=== PATIENT | male | born 1990 | race Caucasian/White ===

== ENCOUNTER 2021-11-24 09:49 | Emergency (ER) | payer OTHER, SELFPAY ==
--- NOTE | 2021-11-24 09:52 | ED.SKABFB ---
HPI - Skin/Abscess/Foreign Bdy General Chief complaint: Skin/Abscess/Foreign Body Stated complaint: Skin Sore/Right Leg Time Seen by Provider: 11/24/21 09:52 Source: patient Mode of arrival: ambulatory Limitations: no limitations History of Present Illness HPI narrative: Mr. Roland is a 31-year-old male patient presenting to the clinic today with complaints of a sore on his right leg x1 day He reports he thinks that this may be an insect bite and he has been squeezing on it and got some blood out of it however now it is red, swollen, hot, and painful to touch. He denies any fever or chills Related Data Home Medications Medication Instructions Recorded Confirmed buspirone 10 mg tablet 10 mg PO DAILY 11/24/21 11/24/21 losartan 50 mg-hydrochlorothiazide 1 tablet PO DAILY 11/24/21 11/24/21 12.5 mg tablet Allergies Allergy/AdvReac Type Severity Reaction Status Date / Time No Known Allergies Allergy Unverified 11/24/21 10:02 Review of Systems Review of Systems: Pertinent positives per HPI. Patient denies any fever, chills, rash, headache, visual changes, dizziness, cough, runny nose, sore throat, shortness of breath, chest pain, palpitations, nausea, vomiting, diarrhea, constipation, abdominal pain, or any urinary issues. PMFSH Comments At the time of my signature, I reviewed and agree with the nursing past medical, surgical, social, and family history. There is no relevant family history pertinent to the patient complaint. Exam Narrative: General: Well-developed, well nourished, in no apparent distress Head: Normocephalic, atraumatic. Cardio: Regular rate and rhythm, s1 and s2 normal, no murmur appreciated. Resp: Clear to auscultation bilaterally, no rhonchi, rales, wheezing or rubs. Integumentary: [place], warm, and dry, has a insect bite to the right lower posterior leg with half dollar size induration without fluctuance. Has a scabbed area in the center, indurated area is red, swollen, erythemic, and tender to palpation. No discharge noted with palpation. Course Course Emergency Course: Portions of this record may have been created with voice recognition software. Level of Care: Express Care Visit Vital Signs Vital signs: Vital signs reviewed MDM - Skin/Abscess/Foreign Bdy MDM Narrative Medical decision making narrative: At the time of visit patient is resting comfortably on the exam table. He has a an infected insect bite to the right posterior leg. I will give a prescription for some doxycycline for this and have him apply triple antibiotic ointment to the affected area. He voiced understanding of discharge instructions and agrees to the treatment plan. Differential Diagnosis Differential diagnosis: Likely abscess of skin or subcutaneous tissue, cellulitis and insect bites Discharge Plan Discharge Clinical Impression: Infected insect bite Patient Disposition: Home, Self-Care Condition: Stable Instructions: Antibiotic Form, Insect Bite or Sting (ED) Additional Instructions: May take Benadryl 25 to 50 mg as needed for any itching May apply cool compress Doxycycline as prescribed Tylenol/Motrin as needed for pain or fever. Follow-up with your PCP in 3 to 5 days if symptoms persist or sooner if they worsen. Prescriptions: New doxycycline monohydrate 100 mg tablet 100 mg PO BID 7 Days Qty: 14 0RF No Action buspirone 10 mg tablet 10 mg PO DAILY losartan-hydrochlorothiazide 50-12.5 mg tablet 1 tablet PO DAILY Follow-up/Referrals: Shauna,MD Rupert [Primary Care Provider] - Time of Disposition: 10:05 Quality NIHSS Nursing Documentation ED NIHSS nursing documentation: reviewed/agree
[2021-11-24 09:56] VITALS: BP 148/88; PULSE 107; RESP 18; TEMP 37.7; O2SAT 98
== END 2021-11-24 10:08 | disposition home or self-care (01) ==
PROVIDERS: Emergency Provider Nurse Practitioner Family; PCP Internal Medicine
DX: S80.861A Insect bite (nonvenomous), right lower leg, initial encounter (principal); W57.XXXA Bitten or stung by nonvenomous insect and other nonvenomous arthropods, initial encounter; I10 Essential (primary) hypertension; J45.909 Unspecified asthma, uncomplicated; F41.9 Anxiety disorder, unspecified
CPT/HCPCS: 99213; G0463

== ENCOUNTER 2021-12-18 13:55 | Emergency (ER) | payer OTHER, SELFPAY ==
--- NOTE | 2021-12-18 13:59 | ED.URI ---
HPI - URI/Sore Throat General Chief Complaint: Upper Respiratory Infection Stated Complaint: Fever,Congestion Time Seen by Provider: 12/18/21 14:00 Source: patient and RN notes reviewed History of Present Illness HPI Narrative: Patient is a 31-year-old male who presents the urgent care with complaints of fever, body aches, congestion, chills and sweats. Patient states that it started yesterday and he is needing a note to be off work. Patient states he did have a positive COVID exposure at a birthday constitution party over the last week and his family members are just now feeling better with the same type of symptoms. Patient states that no one in the home was tested for COVID. Patient has been taking ibuprofen. No other acute complaints. No acute distress noted. Patient aware of the plan of care. Some parts of this dictation were generated by voice recognition software and may contain typographical and/or grammatical inaccuracies. Related Data Home Medications Medication Instructions Recorded Confirmed buspirone 10 mg tablet 10 mg PO DAILY 11/24/21 11/24/21 losartan 50 mg-hydrochlorothiazide 1 tablet PO DAILY 11/24/21 11/24/21 12.5 mg tablet Allergies Allergy/AdvReac Type Severity Reaction Status Date / Time No Known Allergies Allergy Verified 12/18/21 14:08 Review of Systems Review of Systems: CONSTITUTIONAL: Denies fever, chills, or sweats. EYES: Denies visual changes, redness, or discharge. ENT: Denies rhinorrhea, congestion, sore throat, or otalgia. CARDIOVASCULAR: Denies chest pain, palpitations, or edema. RESPIRATORY: Denies cough or dyspnea. GASTROINTESTINAL: Denies abdominal pain, nausea, vomiting, or diarrhea. GENITOURINARY: Denies dysuria or hematuria. SKIN: Denies rash or itching. MUSCULOSKELETAL: Denies back pain, joint pain, or myalgia. NEUROLOGIC: Denies headache, numbness, or weakness. PSYCHIATRIC: Denies anxiety or depression. All other systems reviewed are negative, except as documented in HPI. PMFSH Comments At the time of my signature, I reviewed and agree with the nursing past medical, surgical, social, and family history. There is no relevant family history pertinent to the patient complaint. Exam Narrative: GENERAL: This is a well-nourished, well-developed patient, in no apparent distress. HEAD: normocephalic, atraumatic. EYES: PERRL. Sclera clear/white. Vision is grossly intact. EARS: External ears normal, auditory canals clear and without drainage, bilateral cerumen noted without impaction. TMs normal without perforation. Hearing grossly intact. NOSE: External nose normal with no obvious nasal discharge,; bilateral erythemic nares with clear to yellow rhinorrhea THROAT: Mucous membranes moist, posterior pharynx clear. Moderate postnasal drainage NECK: Neck supple, non-tender without lymphadenopathy CARDIOVASCULAR: Regular rate and rhythm without murmurs, gallops, or rubs. RESPIRATORY: Clear to auscultation. Breath sounds equal bilaterally. No wheezes, rales, or rhonchi. SKIN: warm, intact with no suspicious lesions or rash, good texture and turgor. NEURO: awake, alert, and oriented to person, place and time. There were no obvious focal neurologic abnormalities. EXTREMITIES: No clubbing, cyanosis, or edema. Course Course Level of Care: Express Care Visit Vital Signs Vital signs: Vital Signs Temperature 99.0 F 12/18/21 14:00 Pulse Rate 103 H 12/18/21 14:00 Respiratory Rate 16 12/18/21 14:00 Blood Pressure 136/70 12/18/21 14:00 Pulse Oximetry 97 12/18/21 14:00 Oxygen Delivery Room Air 12/18/21 14:00 Temperature 99.0 F 12/18/21 14:00 Pulse Rate 103 H 12/18/21 14:00 Respiratory Rate 16 12/18/21 14:00 Blood Pressure 136/70 12/18/21 14:00 Pulse Oximetry 97 12/18/21 14:00 Oxygen Delivery Room Air 12/18/21 14:00 Reviewed MDM - URI/Sore Throat MDM Narrative Medical decision making narrative: Advised the patient to continue to treat fevers and sympto
[2021-12-18 14:00] VITALS: BP 136/70; PULSE 103; RESP 16; TEMP 37.2; O2SAT 97
== END 2021-12-18 14:33 | disposition home or self-care (01) ==
PROVIDERS: Emergency Provider Nurse Practitioner Family; PCP Internal Medicine
DX: B34.9 Viral infection, unspecified (principal); Z20.822 Contact with and (suspected) exposure to COVID-19; I10 Essential (primary) hypertension; J45.909 Unspecified asthma, uncomplicated; F41.9 Anxiety disorder, unspecified
CPT/HCPCS: 99211; G0463

== ENCOUNTER 2022-10-02 17:10 | Emergency (ER) | payer BC, SELFPAY ==
[2022-10-02 17:15] VITALS: BP 135/77; PULSE 93; RESP 16; TEMP 36.9; O2SAT 100
--- NOTE | 2022-10-02 17:25 | ED.URI ---
HPI - URI/Sore Throat General Chief Complaint: Upper Respiratory Infection Stated Complaint: cold flu Source: patient and RN notes reviewed Mode of arrival: ambulatory Limitations: no limitations History of Present Illness HPI Narrative: 31 y/o male presented for c/o cough, nasal congestion, sore throat and bilateral ear pressure for 3 days. Symptoms are worse in the morning. Denies sick contacts. Taking Afrin for symptoms. MD elicited complaint: cough Related Data Home Medications Medication Instructions Recorded Confirmed buspirone 10 mg tablet 10 mg PO DAILY 11/24/21 10/02/22 losartan 50 mg-hydrochlorothiazide 1 tablet PO DAILY 11/24/21 10/02/22 12.5 mg tablet albuterol sulfate 90 mcg/actuation 2 puff inhalation 10/02/22 aerosol inhaler Allergies Allergy/AdvReac Type Severity Reaction Status Date / Time No Known Allergies Allergy Verified 10/02/22 17:22 Review of Systems Review of Systems: CONSTITUTIONAL: Denies malaise, chills, sweats, fever EYES: Denies visual changes, redness, or discharge ENT: Reports rhinorrhea, congestion, sinus pain, otalgia, sore throat CARDIOVASCULAR: Denies chest pain, palpitations, edema RESPIRATORY: Reports cough, post nasal drainage. Denies dyspnea GASTROINTESTINAL: Denies abdominal pain, nausea, vomiting, diarrhea SKIN: Denies rash or itching MUSCULOSKELETAL: denies myalgia NEUROLOGIC: Denies headache PMFSH Past Medical History Medical History (Updated 10/02/22 @ 17:39 by Margaret Wade, ELVIA) No pertinent past medical history Exam Narrative: GENERAL: well-appearing, nontoxic EYES: PERRLA, conjunctivae clear ENT: Mucous membranes moist. TM pearly ríos with dull light reflex bilaterally; no tragal tenderness. Oropharynx erythematous without lesions or exudate, no drooling, no hoarseness, no trismus, uvula midline. NECK: Supple. No lymphadenopathy CHEST: Clear to auscultation, breath sounds equal. No wheezing, rhonchi, rales, or stridor. No respiratory distress, speaks in full sentences. HEART: Regular rate and rhythm. No murmur heard. SKIN: Warm, dry, no rash. NEURO: Alert and oriented x3. PSYCH: Normal mood and affect Course Course Emergency Course: Patient is aware of diagnosis, understands and agrees to treatment plan. Anticipatory guidance given. Patient agrees to follow-up as directed and is aware of reasons to seek care at the emergency department. Portions of this record may have been created with voice recognition software Level of Care: Express Care Visit Vital Signs Vital signs: Vital Signs Temperature 98.5 F 10/02/22 17:15 Pulse Rate 93 10/02/22 17:15 Respiratory Rate 16 10/02/22 17:15 Blood Pressure 135/77 10/02/22 17:15 Pulse Oximetry 100 10/02/22 17:15 Oxygen Delivery Room Air 10/02/22 17:15 Temperature 98.5 F 10/02/22 17:15 Pulse Rate 93 10/02/22 17:15 Respiratory Rate 16 10/02/22 17:15 Blood Pressure 135/77 10/02/22 17:15 Pulse Oximetry 100 10/02/22 17:15 Oxygen Delivery Room Air 10/02/22 17:15 reviewed MDM - URI/Sore Throat MDM Narrative Medical decision making narrative: Declines strep and COVID testing. Discussed physical exam findings. Advised supportive measures and signs/symptoms to go to the ER. Pt is appropriate for outpt treatment and f/u. Differential Diagnosis Differential diagnosis: Likely upper respiratory infection, otitis media, sinusitis, viral infection and pharyngitis Discharge Plan Discharge Clinical Impression: Viral infection Patient Disposition: Home, Self-Care Condition: Stable Instructions: Antibiotic Form, Upper Respiratory Infection (ED) Additional Instructions: Afrin only for 3 days. Recommend coricidin HBP, Recommend Flonase spray and Zyrtec (or Claritin/Shaila) over the counter Cough syrup may cause drowsiness; avoid driving or take it at night time. Tylenol every 8 hours as needed for pain Symptomatic treatment
== END 2022-10-02 17:52 | disposition home or self-care (01) ==
PROVIDERS: Emergency Provider Nurse Practitioner Family; PCP Internal Medicine
DX: B34.9 Viral infection, unspecified (principal)
CPT/HCPCS: 99211; G0463

== ENCOUNTER 2024-03-11 08:52 | Emergency (ER) | payer OTHER, SELFPAY ==
[2024-03-11 09:11] VITALS: BP 128/83; PULSE 101; RESP 15; TEMP 36.3; O2SAT 99
--- NOTE | 2024-03-11 09:31 | ED.URI ---
HPI - URI/Sore Throat General Chief Complaint: Upper Respiratory Infection Stated Complaint: Ears/congestion/cough Time Seen by Provider: 03/11/24 09:23 Source: patient, RN notes reviewed and old records reviewed Mode of arrival: ambulatory Limitations: no limitations History of Present Illness HPI Narrative: 33-year-old male who presents to [facility] with complaints of right ear pain with muffled hearing with productive cough and some sinus congestion for the past 3 days. Patient does wear ear plugs at work states does change them daily. Patient states that cough is productive at times has not noticed any fevers, has had some chills and body aches. Patient has not taken anything [id number] for his symptoms. MD elicited complaint: cough, nasal congestion and other (Right ear pain) Onset (ago): day(s) (3) Consistency: constant Severity: moderate Able to tolerate fluids by mouth: Yes Treatments prior to arrival: none Related Data Home Medications Medication Instructions Recorded Confirmed buspirone 10 mg tablet 10 mg PO DAILY 11/24/21 03/11/24 Allergies Allergy/AdvReac Type Severity Reaction Status Date / Time No Known Allergies Allergy Verified 03/11/24 09:43 Review of Systems Review of Systems: CONSTITUTIONAL: Reports malaise, chills, sweats, no known fever. EYES: Denies visual changes, redness, or discharge. ENT: Reports rhinorrhea, congestion, sinus pain, right otalgia and no sore throat. CARDIOVASCULAR: Denies chest pain, palpitations, or edema. RESPIRATORY: Reports cough.? Denies dyspnea. GASTROINTESTINAL: Denies abdominal pain, nausea, vomiting, diarrhea SKIN: Denies rash or itching. MUSCULOSKELETAL:Reports some myalgia. NEUROLOGIC: Denies headache. All systems reviewed & are unremarkable except as noted in HPI and below PMFSH Past Medical History Medical History (Updated 03/12/24 @ 09:22 by Jewell Camp NP) Anxiety Asthma Deafness in left ear Hypertension lost 60 pounds no longer on medication Social History Social History (Updated 03/12/24 @ 09:17 by Jewell Camp NP) Smoking packs per day: 0.5 Smoking cigarettes per day: 10.0 Smoking status: Current every day smoker Tobacco type: cigarettes Alcohol intake: current Alcohol use details: social Substance use type: does not use Living arrangements: with family Gender identity (if verbalized by the patient): Male Comments At time of signature, agree with nursing past medical, surgical, social and family history. There is no relevant family history pertinent to the presenting complaint Exam Narrative: GENERAL: Well-appearing, well-nourished, and in no acute distress. HEAD: Normocephalic EYES: PERRLA, conjunctivae clear ENT: Nares clear, turbinates edematous and erythematous, clear discharge. Mucous membranes moist Right TM red with excoriation or ear canal, Left TM pearly ríos with dull light reflex ; no tragal tenderness. Oropharynx erythematous without lesions. Tonsils not enlarged and without exudate, no drooling, no hoarseness, no trismus, uvula midline, post nasal discharge NECK: Supple. No lymphadenopathy CHEST: Clear to auscultation, breath sounds equal. No wheezing, rhonchi, rales, or stridor. No respiratory distress, speaks in full sentences.cough noted which is productive, SAO2 99% on room air HEART: Regular rate and rhythm. No murmur heard. SKIN: Warm, dry, no rash. NEURO: Alert and oriented x3. PSYCH: Normal mood and affect Course Course Emergency Course: Patient is aware of diagnosis, understands and agrees to treatment plan.? Anticipatory guidance given.? Patient agrees to follow-up as directed and is aware of reasons to seek care at the emergency department. Portions of this record may have been created with voice recognition software Level of Care: Express Care Visit Vital Signs Vital signs: Vital Signs Temperature 36.3 C L 03/11/24 09:
== END 2024-03-11 11:00 | disposition home or self-care (01) ==
PROVIDERS: Emergency Provider Registered Nurse; PCP Internal Medicine
DX: H60.91 Unspecified otitis externa, right ear (principal); H66.91 Otitis media, unspecified, right ear; F17.210 Nicotine dependence, cigarettes, uncomplicated; J45.909 Unspecified asthma, uncomplicated; F41.9 Anxiety disorder, unspecified
CPT/HCPCS: 99213; G0463

== ENCOUNTER 2024-07-07 10:53 | Emergency (ER) | payer OTHER, SELFPAY ==
[2024-07-07 11:04] VITALS: BP 136/80; PULSE 84; RESP 16; TEMP 37.1; O2SAT 98
--- NOTE | 2024-07-07 11:24 | ED_ITS ---
HPI - Eye Problem General Chief complaint: Eye Problems Stated complaint: left eye Time Seen by Provider: 07/07/24 11:22 Source: patient, RN notes reviewed and old records reviewed Mode of arrival: ambulatory Limitations: no limitations History of Present Illness HPI Narrative: 33-year-old male presents to [facility] with complaints pain redness the left eye since Friday. Patient reports that his left eye has been watery and he has some visual blurring and reports that it is sensitive to light with some crusting to left eye in morning. 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 No acute swelling to his left eye or any orbital cellulitis, reports no trauma to his left eye.. MD chief complaint: eye redness Onset (ago): day(s) (3) Onset description: gradual Location: left eye Eye Symptoms: redness, blurry vision, photophobia and other (increased watering, crusting left eye in morning) Severity: mild Treatments Prior to Arrival: none Related Data Allergies Allergy/AdvReac Type Severity Reaction Status Date / Time No Known Allergies Allergy Verified 03/11/24 09:43 Review of Systems Review of Systems: CONSTITUTIONAL: Denies fever, chills, or sweats. EYES: Denies visual changes states some blurring is watery. Reports redness,, irritation, increased watering potophobia, some crusting left eye in mornings, no acute swelling of left eye. ENT: Denies rhinorrhea, congestion, sore throat, or otalgia. CARDIOVASCULAR: Denies chest pain, palpitations, or edema. RESPIRATORY: Denies cough or dyspnea. SKIN: Denies rash or itching. NEUROLOGIC: Denies headache All systems reviewed & are unremarkable except as noted in HPI and below [facility] Past Medical History Medical History (Updated 07/08/24 @ 11:34 by Jewell Camp NP) Asthma Deafness in left ear Hypertension lost 60 pounds no longer on medication Anxiety Social History Social History (Updated 03/12/24 @ 09:17 by Jewell Camp NP) Smoking packs per day: 0.5 Smoking cigarettes per day: 10.0 Smoking status: Current every day smoker Tobacco type: cigarettes Alcohol intake: current Alcohol use details: social Substance use type: does not use Living arrangements: with family Gender identity (if verbalized by the patient): Male Comments At time of signature, agree with nursing past medical, surgical, social and family history. There is no relevant family history pertinent to the presenting complaint Exam Narrative: GENERAL: Well-appearing, well-nourished, and in no acute distress. HEAD: Normocephalic, atraumatic. EYES: PERRLA and EOMI. Upper and lower eyelids unremarkable. No periorbital cellulitis noted. Sclera and conjunctivae injected left eye, increased watering left eye with some photophobia. visual acuity 20/25 bilaterally without any corrective lens ENT: Nares clear, no rhinorrhea or epistaxis. Mucous membranes moist. NECK: Supple. no lymphadenopathy CHEST: Clear to auscultation. No respiratory distress.SAO2 98% on room air HEART: Regular rate and rhythm. No murmur heard. Normal peripheral pulses. SKIN: Warm, dry, no rash. NEURO: No focal deficits. Alert and oriented x3. Course Course Emergency Course: Patient is aware of diagnosis, understands and agrees to treatment plan. Anticipatory guidance given. Patient agrees to follow-up as directed and is aware of reasons to seek care at the emergency department. Portions of this record may have been created with voice recognition software Level of Care: Express Care Visit Vital Signs Vital signs: Vital Signs Temperature 37.1 C 07/07/24 11:04 Pulse Rate 84 07/07/24 11:04 Respiratory Rate 16 07/07/24 11:04 Blood Pressure 136/80 07/07/24 11:04 Pulse Oximetry 98 07/07/24 11:04 Oxygen Delivery Room Air 07/07/24 11:04 Temperature 37.1 C 07/07/24 11:04 Pulse Rate 84 07/07/24 11:04 Respiratory Rate 16 07/07/24 11:04 Blood Pressure 136/80 07/07/24 11:04 Pulse Oximetry 98 07/07/24 11:04 Oxygen Delivery Room Air 07/07/24 11:04 Reviewed MDM - Eye Problem MDM Narrative Medical decision making narrative: Consideration of the following conditions may be warranted for the presenting problem, they are not final diagnoses: Bacterial conjunctivitis, allergic conjunctivitis, viral conjunctivitis, foreign body, blepharitis, chalazion, hordeolum, corneal abrasion.? Exam findings show no acute concerns or changes; patient is non-toxic appearing and is in no distress.? Patient is appropriate for outpatient treatment and follow-up. Differential Diagnosis Differential diagnosis: Likely conjunctivitis, subconjunctival hemorrhage and other (photophobia, increased watering of left eye) Medical Records Attestation: I reviewed the patient's medical records. Critical Care Time Critical Care Time Critical Care Time: No Discharge Plan Discharge Clinical Impression: Acute conjunctivitis, left eye Qualifiers: Acute conjunctivitis type: unspecified Qualified Code(s): H10.32 - Unspecified acute conjunctivitis, left eye Patient Disposition: Home, Self-Care Condition: Stable Instructions: Antibiotic Form, Conjunctivitis (ED) Additional Instructions: Cold compresses to the eyes for comfort May need warm compresses to remove debris in the morning When cleaning the eyes used a washcloth in one direction then change washcloths or use a cotton ball in one direction and then his cotton balls Eyedrops as directed--may be more soothing if left in the refrigerator Do not share medicine--do not touch the eye with the medicine Tylenol or ibuprofen for pain Avoid screen time--television, computer, tablet or phone. 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 Follow-up with PCP in 7-10 days or sooner if needed Follow up with PCP soon in regards to your blood pressure which is elevated above threshold for referral. Blood pressure above 120/80 may indicate pre- hypertension. 136/80 Patient Language: Slovak Prescriptions: New ofloxacin 0.3 % drops See Rx Instructions .ROUTE .COMPLEX Qty: 10 0RF Rx Instructions: put 1-2 drps into affected eye(s) every 2-4 h x 2 days, then 1-2 drps 4 times/day days 3-7 Follow-up/Referrals: Shauna,MD Rupert [Primary Care Provider] - Stand Alone Forms: Work/School Release IP Time of Disposition: 11:35 Quality Devaughn Coma Scale Eyes: Open Verbal: Oriented and Alert Motor: Follows Commands Jean Coma Total Score: 15
--- OUTSIDE RECORDS SUMMARY | 2024-07-07 12:08 | XMS_ITS | Clinical Summary ---
Author Organization [facility] Address [address] [place] [address]. [place], [place] [id number] [place] [id number] Care Team Providers Care Client Insights Consultant Name Role Phone Natan Cooney MD Primary Care Provider Social History Tobacco Use Types Packs/Day Years Used Date Smoking Tobacco: Never Assessed Sex and Gender Information Value Date Recorded Sex Assigned at Not on file Legal Sex Male 3:35 PM [employer] Gender Identity Not on file Sexual Orientation Not on file Plan of Treatment Health Maintenance Due Date Last Done Comments Annual Physical 1992 Hepatitis C 10/24/2007 DTaP, Tdap and Td Vaccines ( 1 - Tdap) 2008 Hepatitis B Vaccines (1 of 3 - 19+ 3-dose series) 2008 COVID-19 Vaccine (2023-2 5 season) 2024 Influenza Adult (#1) 2024 HPV Vaccines Aged Out No longer eligi ble based on patient's age to complete this topic Meningococcal B Vaccine Aged Out No l onger eligible based on patient's age to complete this topic Meningococcal Vaccine Aged Out No mara tramaine eligible based on patient's age to complete this topic Pneumococcal Vaccine: Pediat rics (0 to 5 Years) and At-Risk Patients (6 to 64 Years) Aged Out No longer eligible b ased on patient's age to complete this topic RSV Immunizations Under 20 Months Aged Out No longer eligible based on patient's age to complete this topic Care Teams Client Insights Consultant Relationship Specialty Start Date End Date Natan Cooney MD [id number] [id number] [place] [address] PCP - General FAMILY PRACTICE 05/12/18
--- OUTSIDE RECORDS SUMMARY | 2024-07-07 12:08 | XMS_ITS | Data Portability ---
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 Plan of Treatment Reminders Order Date Submit Date Provider Last Modified By Organization Details Last Modified Time Details Appointments None recorded . Lab HbA1c (hemoglo bin A1c), blood 2022 023 [facility], [address], [place], [address], 3 08:23:07 TSH, ultra-se nsitive, serum 2022 023 [facility], [address], [address], [place], [address], 3 08:23:08 CBC w/ auto diff 2022 023 [facility], [address], [place], [address], 3 03:08:28 CMP, serum or plasma 2022 023 [facility], [address], [place], [address], 3 03:08:27 lipid panel, serum 2022 023 [facility], [address], [place], [address], 3 03:08:27 HbA1c (hemoglo bin A1c), blood 2023 024 [facility], [address], [place], [address], 4 04:09:22 lipid panel, serum 2023 024 [facility], [address], [place], [address], 4 20:11:35 albumin/ creatini ne, mass ratio, urine 2023 024 [facility], [address] [facility] [address] [facility], [place], [address], 4 04:09:21 CMP, serum or plasma 2023 024 [facility], [address] [facility], [place], [address], 4 20:11:35 CBC w/ auto diff 2023 024 [facility], [address] [facility], [place], [address], 4 20:11:36 HbA1c (hemoglo bin A1c), blood 2023 024 [facility]ul[facility], [address] [facility] [address] [facility], [place], [address], 5 08:53:05 lipid panel, serum 2023 024 [facility]ul[facility]ma [facility], [address], [place], [address], 5 08:53:05 CBC w/ auto diff 2023 024 [facility]ulterma [facility], [address], [place], [address], 5 08:53:05 CMP, serum or plasma 2023 024 [facility]ulterma [facility], [address] [facility] [address], [place], [address], 5 08:53:05 Referral None recorded . Procedures None recorded . Surgeries None recorded . Imaging None recorded . Medication Orders metformi n 500 mg tablet 2022 023 [facility] [id number], [address], 3 09:23:28 Blood Glucose Test strips 2022 023 [facility] [id number], [address], 3 09:23:28 Ozempic 0.25 mg or 0.5 mg (2 mg/1.5 mL) subcutan eous pen injector 2022 023 dex [facility]IVER[facility] [address], [address], 3 17:48:06 rosuvast atin 10 mg tablet 2022 023 CAROLINE NICOLE [address], [address], 3 09:23:29 losartan 100 mg-hydro chloroth iazide 12.5 mg tablet 2023 024 [facility] [id number], [address], 4 11:12:12 rosuvast atin 10 mg tablet 2023 024 [facility] [id number], [address], 4 10:26:04 Patient TargetsNo targets recorded. Patient Instructions Encounter Date Encounter Id Patient Instructions Last Modified By Organization Details Last Modified Time 06/13/2022 [id number] f/u in 4month nsuthan Not available 0 06/13/2022 11:28:27 10/18/2022 [id number] A healthy lifestyle: care instructions nsuthan Not available 10/18/2022 10:50:18 diet and exercis e for metabolic syndrome: care instructions nsuthan Not available 10/18/2022 11:01:09 labs/f/u in 4 month nsuthan Not available 10/18/2022 10:51:18 12/03/2022 [id number] A healthy lifestyle: care instructions nsuthan Not available 12/03/2022 09:23:14 type 2 diabetes: care instructions nsuthan Not available 12/03/2022 09:23:14 keep f/u nsuthan Not available 2022 10:30:34 07/14/2023 [id number] A healthy lifestyle: care instructions nsuthan Not available 07/14/2023 10:25:29 diabetes foot health: care instructions nsuthan Not available 07/14/2023 10:25:29 labs /f/u in 4 month nsuthan Not available 07/14/2023 10:25:24 03/30/2024 [id number] f/u in 6 month nsuthan Not available 03/30/2024 11:20:53 Reason for Referral None Reported. Results Created Date Observation Date Name Description Value Unit Range Abnormal Flag Note LastModifiedBy Organization Detail LastModifiedTime 06/13/1906/14/2022 LIPID PANEL cholesterol, total 185 mg/dL 100-19 9 Not Available [facility] ([facility]) [address] [facility], [place], [address], 06/14/2022 04:08:16 06/13/1906/14/2022 LIPID PANEL triglyceride s 72 mg/dL 0-149 Not Available [facility] ([facility]) [address] [facility], [place], [address], 06/14/2022 04:08:16 06/13/19 23 06/14/2022 LIPID PANEL HDL cholesterol 44 mg/dL >39 Not Available [facility] ([facility]) [address] [place] [place], [address], 06/14/2022 04:08:16 06/13/19 23 06/14/2022 LIPID PANEL VLDL cholesterol blanca 13 mg/dL 5-40 Not Available [facility] ([facility]) [address] [place] [place], [address], 06/14/2022 04:08:16 06/13/19 23 06/14/2022 LIPID PANEL LDL chol calc ([facility]) 128 mg/dL 0-99 above high normal Not Available [facility] ([facility]) [address] [place] [place], [address], 06/14/2022 04:08:16 06/13/19 23 06/14/2022 COMP. METAB OLIC PANEL (14) glucose 110 mg/dL 70-99 above high normal Not Available [facility] ([facility]) [address] [place] [place], [address], 06/14/2022 04:08:17 06/13/19 23 06/14/2022 COMP. METAB OLIC PANEL (14) BUN 13 mg/dL 6-20 Not Available [facility] ([facility]) [address] [place] [place], [address], 06/14/2022 04:08:17 06/13/19 23 06/14/2022 COMP. METAB OLIC PANEL (14) creatinine 1.00 mg/dL 0.76-1 .27 Not Available [facility] ([facility]) [address] [place] [place], [address], 06/14/2022 04:08:17 06/13/19 23 06/14/2022 COMP. METAB OLIC PANEL (14) eGFR 103 mL/mi n/1.7 3 >59 Not Available [facility] ([facility]) [address] [place], [address], 06/14/2022 04:08:17 06/13/19 23 06/14/2022 COMP. METAB OLIC PANEL (14) BUN/creatini ne ratio 13 9-20 Not Available [facility] ([facility]) [address] [place], [address], 06/14/2022 04:08:17 06/13/19 23 06/14/2022 COMP. METAB OLIC PANEL (14) sodium 140 mmol/ L 134-14 4 Not Available [facility] ([facility]) [address] [place] [place], [address], 06/14/2022 04:08:17 06/13/19 23 06/14/2022 COMP. METAB OLIC PANEL (14) potassium 4.1 mmol/ L 3.5-5. 2 Not Available [facility] ([facility]) [address] [place] [place], [address], 06/14/2022 04:08:17 06/13/19 23 06/14/2022 COMP. METAB OLIC PANEL (14) chloride 101 mmol/ L 96-106 Not Available [facility] ([facility]) [address] [place] [place], [address], 06/14/2022 04:08:17 06/13/19 23 06/14/2022 COMP. METAB OLIC PANEL (14) carbon dioxide, total 25 mmol/ L 20-29 Not Available [facility] ([facility]) [address] [place] [place], [address], 06/14/2022 04:08:17 06/13/19 23 06/14/2022 COMP. METAB OLIC PANEL (14) calcium 9.6 mg/dL 8.7-10 .2 Not Available [facility] ([facility]) [address] [place] [place], [address], 06/14/2022 04:08:17 06/13/19 23 06/14/2022 COMP. METAB OLIC PANEL (14) protein, total 7.5 g/dL 6.0-8. 5 Not Available [facility] ([facility]) [address] [place], [address], 06/14/2022 04:08:17 06/13/19 23 06/14/2022 COMP. METAB OLIC PANEL (14) albumin 4.8 g/dL 4.0-5. 0 Not Available [facility] ([facility]) [address] [place], [address], 06/14/2022 04:08:17 06/13/19 23 06/14/2022 COMP. METAB OLIC PANEL (14) globulin, total 2.7 g/dL 1.5-4. 5 Not Available [facility] ([facility]) [address] [place], [address], 06/14/2022 04:08:17 06/13/19 23 06/14/2022 COMP. METAB OLIC PANEL (14) A/G ratio 1.8 1.2-2. 2 Not Available [facility] ([facility]) [address] [place], [address], 06/14/2022 04:08:17 06/13/19 23 06/14/2022 COMP. METAB OLIC PANEL (14) bilirubin, total 0.5 mg/dL 0.0-1. 2 Not Available [facility] ([facility]) [address] [place], [address], 06/14/2022 04:08:17 06/13/19 23 06/14/2022 COMP. METAB OLIC PANEL (14) alkaline phosphatase 69 IU/L 44-121 Not Available [facility] ([facility]) [address] [place], [address], 06/14/2022 04:08:17 06/13/19 23 06/14/2022 COMP. METAB OLIC PANEL (14) AST (SGOT) 31 IU/L 0-40 Not Available [facility] ([facility]) [address] [facility], [place], [address], 06/14/2022 04:08:17 06/13/1906/14/2022 COMP. METAB OLIC PANEL (14) ALT (SGPT) 81 IU/L 0-44 above high normal Not Available [facility] ([facility]) [address] [facility], [place], [address], 06/14/2022 04:08:17 06/13/1906/14/2022 CBC WITH DIFFE RENTI AL/PL ATELE T WBC 7.9 x10e3 /uL 3.4-10 .8 Not Available [facility] ([facility]) [address] [facility], [place], [address], 06/14/2022 04:08:17 06/13/1906/14/2022 CBC WITH DIFFE RENTI AL/PL ATELE T RBC 5.06 x10e6 /uL 4.14-5 .80 Not Available [facility] ([facility]) [address] [facility], [place], [address], 06/14/2022 04:08:17 06/13/1906/14/2022 CBC WITH DIFFE RENTI AL/PL ATELE T hemoglobin 15.2 g/dL 13.0-1 7.7 Not Available [facility] ([facility]) [address] [facility], [place], [address], 06/14/2022 04:08:17 06/13/1906/14/2022 CBC WITH DIFFE RENTI AL/PL ATELE T hematocrit 45.5 % 37.5-5 1.0 Not Available [facility] ([facility]) [address] [facility], [place], [address], 06/14/2022 04:08:17 06/13/19 23 06/14/2022 CBC WITH DIFFE RENTI AL/PL ATELE T MCV 90 fL 79-97 Not Available [facility] ([facility]) [address] [facility], [place], [address], 06/14/2022 04:08:17 06/13/19 23 06/14/2022 CBC WITH DIFFE RENTI AL/PL ATELE T MCH 30.0 pg 26.6-3 3.0 Not Available [facility] ([facility]) [address] [facility], [place], [address], 06/14/2022 04:08:17 06/13/19 23 06/14/2022 CBC WITH DIFFE RENTI AL/PL ATELE T MCHC 33.4 g/dL 31.5-3 5.7 Not Available [facility] ([facility]) [address] [facility], [place], [address], 06/14/2022 04:08:17 06/13/19 23 06/14/2022 CBC WITH DIFFE RENTI AL/PL ATELE T RDW 12.7 % 11.6-1 5.4 Not Available [facility] ([facility]) [address] [facility], [place], [address], 06/14/2022 04:08:17 06/13/19 23 06/14/2022 CBC WITH DIFFE RENTI AL/PL ATELE T platelets 291 x10e3 /uL 150-45 0 Not Available [facility] ([facility]) [address] [place], [address], 06/14/2022 04:08:17 06/13/1906/14/2022 CBC WITH DIFFE RENTI AL/PL ATELE T neutrophils 60 % notest ab. Not Available [facility] ([facility]) [address] [place], [address], 06/14/2022 04:08:17 06/13/19 23 06/14/2022 CBC WITH DIFFE RENTI AL/PL ATELE T lymphs 27 % notest ab. Not Available [facility] ([facility]) [address] [facility], [place], [address], 06/14/2022 04:08:17 06/13/19 23 06/14/2022 CBC WITH DIFFE RENTI AL/PL ATELE T monocytes 10 % notest ab. Not Available [facility] ([facility]) [address] [facility], [place], [address], 06/14/2022 04:08:17 06/13/19 23 06/14/2022 CBC WITH DIFFE RENTI AL/PL ATELE T eos 2 % notest ab. Not Available [facility] ([facility]) [address] [facility], [place], [address], 06/14/2022 04:08:17 06/13/1906/14/2022 CBC WITH DIFFE RENTI AL/PL ATELE T basos 1 % notest ab. Not Available [facility] ([facility]) [address] [facility], [place], [address], 06/14/2022 04:08:17 06/13/1906/14/2022 CBC WITH DIFFE RENTI AL/PL ATELE T neutrophils (absolute) 4.8 x10e3 /uL 1.4-7. 0 Not Available [facility] ([facility]) [address] [place], [address], 06/14/2022 04:08:17 06/13/1906/14/2022 CBC WITH DIFFE RENTI AL/PL ATELE T lymphs (absolute) 2.1 x10e3 /uL 0.7-3. 1 Not Available [facility] ([facility]) [address] [place], [address], 06/14/2022 04:08:17 06/13/1906/14/2022 CBC WITH DIFFE RENTI AL/PL ATELE T monocytes(ab solute) 0.8 x10e3 /uL 0.1-0. 9 Not Available [facility] ([facility]) [address] [facility], [place], [address], 06/14/2022 04:08:17 06/13/19 23 06/14/2022 CBC WITH DIFFE RENTI AL/PL ATELE T eos (absolute) 0.2 x10e3 /uL 0.0-0. 4 Not Available [facility] ([facility]) [address] [facility], [place], [address], 06/14/2022 04:08:17 06/13/19 23 06/14/2022 CBC WITH DIFFE RENTI AL/PL ATELE T baso (absolute) 0.1 x10e3 /uL 0.0-0. 2 Not Available [facility] ([facility]) [address] [facility], [place], [address], 06/14/2022 04:08:17 06/13/19 23 06/14/2022 CBC WITH DIFFE RENTI AL/PL ATELE T immature granulocytes 0 % notest ab. Not Available [facility] ([facility]) [address] [facility], [place], [address], 06/14/2022 04:08:17 06/13/1906/14/2022 CBC WITH DIFFE RENTI AL/PL ATELE T immature grans (abs) 0.0 x10e3 /uL 0.0-0. 1 Not Available [facility] ([facility]) [address] [facility], [place], [address], 06/14/2022 04:08:17 11/19/19 23 11/18/2022 LIPID PANEL cholesterol, total 226.4 mg/dL 140.0- 200.0 above high normal Not Available [facility] Department [address] [place], [address], 11/19/2022 03:08:27 11/19/19 23 11/18/2022 LIPID PANEL triglyceride s 145 mg/dL <=[address] [facility] Department [address] [place], [address], 11/19/2022 03:08:27 11/19/19 23 11/18/2022 LIPID PANEL HDL cholesterol 53.9 mg/dL 40.0-1 00.0 Not Available [facility] Department [address] [place], [address], 11/19/2022 03:08:27 11/19/19 23 11/18/2022 LIPID PANEL VLDL cholesterol blanca 29.00 mg/dL 5.00-4 0.00 Not Available [facility] Department [address] [place], [address], 11/19/2022 03:08:27 11/19/19 23 11/18/2022 LIPID PANEL LDL chol calc (nih) 146.5 mg/dL 0.0-99 .0 above high normal Not Available [facility] Department [address] [place], [address], 11/19/2022 03:08:27 11/19/19 23 11/18/2022 COMP. METAB OLIC PANEL (14) glucose 110 mg/dL 65-99 above high normal ANION GP 17.0 mmol/ L N OSMOL 280.0 mOsM/ L N REFER ENCE RANGE : 275.0 -301. 0 Not Available [facility] Department [address] [place], [address], 11/19/2022 03:08:27 11/19/19 23 11/18/2022 COMP. METAB OLIC PANEL (14) BUN 14 mg/dL 8-26 Not Available [facility] Department [address] [place], [address], 11/19/2022 03:08:27 11/19/19 23 11/18/2022 COMP. METAB OLIC PANEL (14) creatinine 0.98 mg/dL 0.50-1 .40 Not Available [facility] Department [address] [place], [address], 11/19/2022 03:08:27 11/19/19 23 11/18/2022 COMP. METAB OLIC PANEL (14) eGFR 104 mL/mi n/1.7 3 >=60 Not Available [facility] Department [address] [place] [address], [address], 11/19/2022 03:08:27 11/19/19 23 11/18/2022 COMP. METAB OLIC PANEL (14) BUN/creatini ne ratio 14.[address] [facility] Department [address] [place] [address], [address], 11/19/2022 03:08:27 11/19/19 23 11/18/2022 COMP. METAB OLIC PANEL (14) sodium 140.0 mmol/ L 136.0- 144.0 Not Available [facility] Department [address] [place] [address], [address], 11/19/2022 03:08:27 11/19/19 23 11/18/2022 COMP. METAB OLIC PANEL (14) potassium 4.2 mmol/ L 3.5-5. 3 Not Available [facility] Department [address] [place] [address], [address], 11/19/2022 03:08:27 11/19/19 23 11/18/2022 COMP. METAB OLIC PANEL (14) chloride 98 mmol/ l 101-11 1 below low normal Not Available [facility] Department [address] [place] [address], [address], 11/19/2022 03:08:27 11/19/19 23 11/18/2022 COMP. METAB OLIC PANEL (14) carbon dioxide, total 28.9 mmol/ L 21.0-3 2.0 Not Available [facility] Department [address] [place] [address], [address], 11/19/2022 03:08:27 11/19/19 23 11/18/2022 COMP. METAB OLIC PANEL (14) calcium 10.3 mg/dL 8.2-10 .0 above high normal Not Available [facility] Department [address] [place], [address], 11/19/2022 03:08:27 11/19/19 23 11/18/2022 COMP. METAB OLIC PANEL (14) protein, total 7.8 g/dL 6.7-8. 2 Not Available [facility] Department [address] [place], [address], 11/19/2022 03:08:27 11/19/19 23 11/18/2022 COMP. METAB OLIC PANEL (14) albumin 4.8 g/dL 3.5-5. 5 Not Available [facility] Department [address] [place], [address], 11/19/2022 03:08:27 11/19/19 23 11/18/2022 COMP. METAB OLIC PANEL (14) globulin, total 3.0 g/dL 1.5-4. 5 Not Available [facility] Department [address] [place], [address], 11/19/2022 03:08:27 11/19/19 23 11/18/2022 COMP. METAB OLIC PANEL (14) A/G ratio 1.6 Not Available [facility] Department [address] [place], [address], 11/19/2022 03:08:27 11/19/19 23 11/18/2022 COMP. METAB OLIC PANEL (14) bilirubin, total 0.4 mg/dL 0.0-1. 2 Not Available [facility] Department [address] [place], [address], 11/19/2022 03:08:27 11/19/19 23 11/18/2022 COMP. METAB OLIC PANEL (14) alkaline phosphatase 77.9 IU/L 42.0-1 21.0 Not Available [facility] Department [address] [place], [address], 11/19/2022 03:08:27 11/19/19 23 11/18/2022 COMP. METAB OLIC PANEL (14) AST (SGOT) 27.5 U/L 10.0-4 2.0 Not Available [facility] Department [address] [place], [address], 11/19/2022 03:08:27 11/19/19 23 11/18/2022 COMP. METAB OLIC PANEL (14) ALT (SGPT) 73.9 U/L 10.0-6 0.0 above high normal Not Available [facility] Department [address] [place], [address], 11/19/2022 03:08:27 11/19/19 23 11/18/2022 CBC WITH DIFFE RENTI AL/PL ATELE T WBC 6.8 K/uL 3.4-10 .8 Not Available [facility] Department [address] [place], [address], 11/19/2022 03:08:28 11/19/19 23 11/18/2022 CBC WITH DIFFE RENTI AL/PL ATELE T RBC 5.4 M/uL 4.5-6. 3 Not Available [facility] Department [address] [place], [address], 11/19/2022 03:08:28 11/19/19 23 11/18/2022 CBC WITH DIFFE RENTI AL/PL ATELE T hemoglobin 15.9 g/dL 13.5-1 7.5 Not Available [facility] Department [address] [place], [address], 11/19/2022 03:08:28 11/19/19 23 11/18/2022 CBC WITH DIFFE RENTI AL/PL ATELE T hematocrit 48.2 % 40.0-5 2.0 Not Available [facility] Department [address] [place], [address], 11/19/2022 03:08:28 11/19/19 23 11/18/2022 CBC WITH DIFFE RENTI AL/PL ATELE T MCV 89 fL 80-95 Not Available [facility] Department [address] [place], [address], 11/19/2022 03:08:28 11/19/19 23 11/18/2022 CBC WITH DIFFE RENTI AL/PL ATELE T MCH 29 pg 27-32 Not Available [facility] Department [address] [place], [address], 11/19/2022 03:08:28 11/19/1911/18/2022 CBC WITH DIFFE RENTI AL/PL ATELE T MCHC 33 g/dL 32-36 Not Available [facility] Department [address] [place], [address], 11/19/2022 03:08:28 11/19/1911/18/2022 CBC WITH DIFFE RENTI AL/PL ATELE T RDW 12.8 % 11.5-1 4.5 Not Available [facility] Department [address] [place], [address], 11/19/2022 03:08:28 11/19/1911/18/2022 CBC WITH DIFFE RENTI AL/PL ATELE T platelets 290 K/uL 155-37 9 MPV 10.0 FL 8.9-1 2.7 N Not Available [facility] Department [address] [place], [address], 11/19/2022 03:08:28 11/19/1911/18/2022 CBC WITH DIFFE RENTI AL/PL ATELE T neutrophils 52.4 % 40.0-7 4.0 Not Available [facility] Department [address] [place], [address], 11/19/2022 03:08:28 11/19/19 23 11/18/2022 CBC WITH DIFFE RENTI AL/PL ATELE T lymphs 32.8 % 14.0-4 6.0 Not Available [facility] Department [address] [place], [address], 11/19/2022 03:08:28 11/19/19 23 11/18/2022 CBC WITH DIFFE RENTI AL/PL ATELE T monocytes 10.4 % 4.0-12 .0 Not Available [facility] Department [address] [place], [address], 11/19/2022 03:08:28 11/19/19 23 11/18/2022 CBC WITH DIFFE RENTI AL/PL ATELE T eos 3 % 0-5 Not Available [facility] Department [address] [place], [address], 11/19/2022 03:08:28 11/19/19 23 11/18/2022 CBC WITH DIFFE RENTI AL/PL ATELE T basos 0.7 % 0.0-1. 0 Not Available [facility] Department [address] [place], [address], 11/19/2022 03:08:28 11/19/19 23 11/18/2022 CBC WITH DIFFE RENTI AL/PL ATELE T neutrophils (absolute) 3.6 K/uL 1.4-7. 0 Not Available [facility] Department [address] [place], [address], 11/19/2022 03:08:28 11/19/19 23 11/18/2022 CBC WITH DIFFE RENTI AL/PL ATELE T lymphs (absolute) 2.2 K/uL 0.7-3. 1 Not Available [facility] Department [address] [place], [address], 11/19/2022 03:08:28 11/19/19 23 11/18/2022 CBC WITH DIFFE RENTI AL/PL ATELE T monocytes(ab solute) 0.7 K/uL 0.1-0. 9 Not Available [facility] Department [address] [place], [address], 11/19/2022 03:08:28 11/19/19 23 11/18/2022 CBC WITH DIFFE RENTI AL/PL ATELE T eos (absolute) 0.2 K/uL 0.0-0. 4 Not Available [facility] Department [address] [place], [address], 11/19/2022 03:08:28 11/19/19 23 11/18/2022 CBC WITH DIFFE RENTI AL/PL ATELE T baso (absolute) 0.1 K/uL 0.0-0. 3 Not Available [facility] Department [address] [place], [address], 11/19/2022 03:08:28 11/19/19 23 11/18/2022 CBC WITH DIFFE RENTI AL/PL ATELE T immature granulocytes 1.2 % Not Available [facility] Department [address] [place], [address], 11/19/2022 03:08:28 11/19/19 23 11/18/2022 CBC WITH DIFFE RENTI AL/PL ATELE T immature grans (abs) 0.1 K/uL Not Available [facility] Department [address] [place], [address], 11/19/2022 03:08:28 11/19/19 23 11/18/2022 CBC WITH DIFFE RENTI AL/PL ATELE T NRBC 0 % Not Available [facility] Department [address] [place], [address], 11/19/2022 03:08:28 11/19/19 23 11/19/2022 HEMOG LOBIN A1C hemoglobin A1C 7.0 % 4.8-5. 6 above high normal Predi abete s: 5.7 - 6.4 Diabe italo: >6.4 Glyce carlos contr ol for adult s with diabe italo: <7.0 Not Available [facility] ([facility]) [address] [facility], [place], [address], 11/19/2022 08:23:07 11/19/19 23 11/19/2022 TSH TSH 3.120 uIU/m L 0.450- 4.500 Not Available [facility] ([facility]) [address] [facility], [place], [address], 11/19/2022 08:23:08 07/14/19 24 07/14/2023 LIPID PANEL cholesterol, total 207 mg/dL 100-19 9 above high normal Not Available [facility] Department [address] [place], [address], 07/14/2023 20:11:34 07/14/19 24 07/14/2023 LIPID PANEL triglyceride s 96 mg/dL 0-[address] [facility] Department [address] [place], [address], 07/14/2023 20:11:34 07/14/19 24 07/14/2023 LIPID PANEL HDL cholesterol 53 mg/dL 40-999 Not Available [facility] Department [address] [place], [address], 07/14/2023 20:11:34 07/14/19 24 07/14/2023 LIPID PANEL VLDL cholesterol [place] 19 mg/dL 5-[address] [facility] Department [address] [place], [address], 07/14/2023 20:11:34 07/14/19 24 07/14/2023 LIPID PANEL LDL chol calc ([facility]) 149 mg/dL 0-99 above high normal Not Available [facility] Department [address] [place], [address], 07/14/2023 20:11:34 07/14/19 24 07/14/2023 COMP. METAB OLIC PANEL (14) glucose 108 mg/dL 70-99 above high normal Not Available [facility] Department [address] [place], [address], 07/14/2023 20:11:35 07/14/19 24 07/14/2023 COMP. METAB OLIC PANEL (14) BUN 13 mg/dL 6-20 Not Available [facility] Department [address] [place], [address], 07/14/2023 20:11:35 07/14/19 24 07/14/2023 COMP. METAB OLIC PANEL (14) creatinine 0.99 mg/dL 0.76-1 .27 Not Available [facility] Department [address] [place], [address], 07/14/2023 20:11:35 07/14/19 24 07/14/2023 COMP. METAB OLIC PANEL (14) eGFR 103 >=60 Units for eGFR value s are mL/mi n/1.7 3 The eGFR Calcu latio n has not been valid ated for patie nts under the age of 18. If test resul ts are displ ayed for a patie nt under the age of 18, disre jamison that value . Not Available [facility] Department [address] [place], [address], 07/14/2023 20:11:35 07/14/19 24 07/14/2023 COMP. METAB OLIC PANEL (14) BUN/creatini ne ratio 13 9-[address] [facility] Department [address] [place], [address], 07/14/2023 20:11:35 07/14/19 24 07/14/2023 COMP. METAB OLIC PANEL (14) sodium 140 mmol/ L 134-14 4 Not Available [facility] Department [address] [place], [address], 07/14/2023 20:11:35 07/14/19 24 07/14/2023 COMP. METAB OLIC PANEL (14) potassium 4.6 mmol/ L 3.5-5. 2 Not Available [facility] Department [address] [place], [address], 07/14/2023 20:11:35 07/14/19 24 07/14/2023 COMP. METAB OLIC PANEL (14) chloride 102 mmol/ L 96-106 Not Available [facility] Department [address] [place], [address], 07/14/2023 20:11:35 07/14/19 24 07/14/2023 COMP. METAB OLIC PANEL (14) carbon dioxide, total 27 mmol/ L 20-29 Not Available [facility] Department [address] [place], [address], 07/14/2023 20:11:35 07/14/19 24 07/14/2023 COMP. METAB OLIC PANEL (14) calcium 9.7 mg/dL 8.7-10 .2 Not Available [facility] Department [address] [place] [address], [address], 07/14/2023 20:11:35 07/14/19 24 07/14/2023 COMP. METAB OLIC PANEL (14) protein, total 7.6 g/dL 6.0-8. 5 Not Available [facility] Department [address] [place], [address], 07/14/2023 20:11:35 07/14/19 24 07/14/2023 COMP. METAB OLIC PANEL (14) albumin 4.6 g/dL 4.1-5. 1 Not Available [facility] Department [address] [place], [address], 07/14/2023 20:11:35 07/14/19 24 07/14/2023 COMP. METAB OLIC PANEL (14) globulin, total 3.0 g/dL 1.5-4. 5 Not Available [facility] Department [address] [place], [address], 07/14/2023 20:11:35 07/14/19 24 07/14/2023 COMP. METAB OLIC PANEL (14) A/G ratio 2.0 1.2-2. 2 Not Available [facility] Department [address] [place], [address], 07/14/2023 20:11:35 07/14/19 24 07/14/2023 COMP. METAB OLIC PANEL (14) bilirubin, total 0.4 mg/dL 0.0-1. 2 Not Available [facility] Department [address] [place], [address], 07/14/2023 20:11:35 07/14/19 24 07/14/2023 COMP. METAB OLIC PANEL (14) alkaline phosphatase 63 IU/L 44-121 Not Available [facility] Department [address] [place], [address], 07/14/2023 20:11:35 07/14/19 24 07/14/2023 COMP. METAB OLIC PANEL (14) AST (SGOT) 33 IU/L 0-40 Not Available [facility] Department [address] [place], [address], 07/14/2023 20:11:35 07/14/19 24 07/14/2023 COMP. METAB OLIC PANEL (14) ALT (SGPT) 68 IU/L 0-44 above high normal Not Available [facility] Department [address] [place] [address], [address], 07/14/2023 20:11:35 07/14/19 24 07/14/2023 CBC WITH DIFFE RENTI AL/PL ATELE T WBC 6.2 x10e3 /uL 3.4-10 .8 Not Available [facility] Department [address] [place], [address], 07/14/2023 20:11:36 07/14/19 24 07/14/2023 CBC WITH DIFFE RENTI AL/PL ATELE T RBC 5.04 x10e6 /uL 4.14-5 .80 Not Available [facility] Department [address] [place] [address], [address], 07/14/2023 20:11:36 07/14/19 24 07/14/2023 CBC WITH DIFFE RENTI AL/PL ATELE T hemoglobin 15.0 g/dL 13.0-1 7.7 Not Available [facility] Department [address] [place], [address], 07/14/2023 20:11:36 07/14/19 24 07/14/2023 CBC WITH DIFFE RENTI AL/PL ATELE T hematocrit 45.8 % 37.5-5 1.0 Not Available [facility] Department [address] [place], [address], 07/14/2023 20:11:36 07/14/19 24 07/14/2023 CBC WITH DIFFE RENTI AL/PL ATELE T MCV 91 fL 79-97 Not Available [facility] Department [address] [place], [address], 07/14/2023 20:11:36 07/14/19 24 07/14/2023 CBC WITH DIFFE RENTI AL/PL ATELE T MCH 29.8 pg 26.6-3 3.0 Not Available [facility] Department [address] [place], [address], 07/14/2023 20:11:36 07/14/19 24 07/14/2023 CBC WITH DIFFE RENTI AL/PL ATELE T MCHC 32.8 g/dL 31.5-3 5.7 Not Available [facility] Department [address] [place], [address], 07/14/2023 20:11:36 07/14/19 24 07/14/2023 CBC WITH DIFFE RENTI AL/PL ATELE T RDW 13.3 % 11.5-1 4.5 Not Available [facility] Department [address] [place], [address], 07/14/2023 20:11:36 07/14/19 24 07/14/2023 CBC WITH DIFFE RENTI AL/PL ATELE T platelets 309 x10e3 /uL 150-45 0 Not Available [facility] Department [address] [place], [address], 07/14/2023 20:11:36 07/14/19 24 07/14/2023 CBC WITH DIFFE RENTI AL/PL ATELE T neutrophils 49 % notest b. Not Available [facility] Department [address] [place], [address], 07/14/2023 20:11:36 07/14/19 24 07/14/2023 CBC WITH DIFFE RENTI AL/PL ATELE T lymphs 34 % notest b. Not Available [facility] Department [address] [place] [address], [address], 07/14/2023 20:11:36 07/14/19 24 07/14/2023 CBC WITH DIFFE RENTI AL/PL ATELE T monocytes 12 % notest b. Not Available [facility] Department [address] [place] [address], [address], 07/14/2023 20:11:36 07/14/19 24 07/14/2023 CBC WITH DIFFE RENTI AL/PL ATELE T eos 5 % notest b. Not Available [facility] Department [address] [place], [address], 07/14/2023 20:11:36 07/14/19 24 07/14/2023 CBC WITH DIFFE RENTI AL/PL ATELE T basos 1 % notest b. Not Available [facility] Department [address] [place] [address], [address], 07/14/2023 20:11:36 07/14/19 24 07/14/2023 CBC WITH DIFFE RENTI AL/PL ATELE T neutrophils (absolute) 3.1 x10e3 /uL 1.4-7. 0 Not Available [facility] Department [address] [place], [address], 07/14/2023 20:11:36 07/14/19 24 07/14/2023 CBC WITH DIFFE RENTI AL/PL ATELE T lymphs (absolute) 2.1 x10e3 /uL 0.7-3. 1 Not Available [facility] Department [address] [place], [address], 07/14/2023 20:11:36 07/14/19 24 07/14/2023 CBC WITH DIFFE RENTI AL/PL ATELE T monocytes(ab solute) 0.7 x10e3 /uL 0.1-0. 9 Not Available [facility] Department [address] [place], [address], 07/14/2023 20:11:36 07/14/19 24 07/14/2023 CBC WITH DIFFE RENTI AL/PL ATELE T eos (absolute) 0.3 x10e3 /uL 0.0-0. 4 Not Available [facility] Department [address] [place], [address], 07/14/2023 20:11:36 07/14/19 24 07/14/2023 CBC WITH DIFFE RENTI AL/PL ATELE T baso (absolute) 0.1 x10e3 /uL 0.0-0. 2 Not Available [facility] Department [address] [place], [address], 07/14/2023 20:11:36 07/14/19 24 07/14/2023 CBC WITH DIFFE RENTI AL/PL ATELE T immature granulocytes 0.2 % notest b. Not Available [facility] Department [address] [place], [address], 07/14/2023 20:11:36 07/14/19 24 07/14/2023 CBC WITH DIFFE RENTI AL/PL ATELE T immature grans (abs) 0.0 x10e3 /uL 0.0-0. 1 Not Available [facility] Department [address] [facility], [place], [address], 07/14/2023 20:11:36 07/14/19 24 07/14/2023 CBC WITH DIFFE RENTI AL/PL ATELE T NRBC 0 % 0-0 Not Available [facility] Department [address], [place], [address], 07/14/2023 20:11:36 07/14/19 24 07/15/2023 ALBUM IN/CR EATIN INE RATIO ,URIN E creatinine, urine 200.4 mg/dL notest ab. Not Available [facility] ([facility]) [address] [place], [address], 07/15/2023 04:09:21 07/14/19 24 07/15/2023 ALBUM IN/CR EATIN INE RATIO ,URIN E albumin, urine 9.5 ug/mL notest ab. Not Available [facility] ([facility]) [address] [place], [address], 07/15/2023 04:09:21 07/14/19 24 07/15/2023 ALBUM IN/CR EATIN INE RATIO ,URIN E alb/creat ratio 5 mg/g_ creat 0-29 Yasmeen l: 0 - 29 Moder ately incre ased: 30 - 300 Sever adriel incre ased: >300 Not Available [facility] ([facility]) [address] [place], [address], 07/15/2023 04:09:21 07/14/19 24 07/14/2023 HEMOG LOBIN A1C hemoglobin A1C 6.1 % 4.8-5. 6 above high normal Predi abete s: 5.7 - 6.4 Diabe italo: >6.4 Glyce carlos contr ol for adult s with diabe italo: <7.0 Not Available [facility] ([facility]) [address] [place], [address], 07/15/2023 04:09:22 Result Notes None recorded. Problems Name Problem SNOMED Code Status Onset Date Resolution Date Notes Provider Name and Address Organization Details Recorded Time Essential hypertension 64774091 Active 2021 Rupert Villatoro MD Attn: Es reji,[address] [facility], [place], [address], [place] [facility] 2 10:26:02 Smoker 02315919 Active 2021 Rupert Villatoro MD Attn: Es mendoza,[address] [facility], [place], [address], [place] [facility] 2 10:26:37 Asthma 913269285 Active 2021 Rupert Villatoro MD Attn: Es mendoza,[address] [facility], [place], [address], [place] [facility] 2 10:32:05 Anxiety 14232304 Active 2021 Rupert Villatoro MD Attn: Es mendoza,[address] [facility], [place], [address], [place] [facility] 2 10:37:48 Obesity 714025439 Active 2021 Rupert Villatoro MD Attn: Es mendoza,[address] [facility], [place], [address], [place] [facility] 3 09:07:43 Stasis dermatitis 00817243 Active 2021 Rupert Villatoro MD Attn: Es mendoza,[address] [facility], [place], [address], [place] [facility] 2 10:57:12 Liver function tests outside reference range 733859750 Active 2021 Rupert Villatoro MD Attn: Es mendoza,[address] [facility], [place], [address], [place] [facility] 2 09:31:40 Hyperlipidemia 32761606 Active 2021 Rupert Villatoro MD Attn: Es mendoza,[address] [facility], [address], [facility] - [facility] 2 09:31:50 Type 2 diabetes mellitus 69122884 Active 2022 Rupert Villatoro MD Attn: Es mendoza,[address] [facility], [place], [address], [facility] - [facility] 3 09:07:26 Problem Notes None recorded. Medical Equipment None Reported. Allergies No known drug allergies Medications Name Sig Start Date Stop Date Status Note LastModified by Organization Details LastModified Time metformin 500 mg tablet TAKE 1 TABLET BY MOUTH TWICE A DAY-NEED S FOLLOW UP active Not Available Not Available No t Available albuterol sulfate 2.5 mg/3 mL (0.083 %) solution for nebulizat ion INHALE 3 ML BY NEBULIZA TION 3 TIMES A DAY active Not Available Not Available No t Available azithromy zia 250 mg tablet TAKE 2 TABLETS BY MOUTH TODAY, THEN TAKE 1 TABLET DAILY FOR 4 DAYS 02/06 completed Not Available Not Available Not Available metoprolo l succinate ER 100 mg tablet,ex tended release 24 hr TAKE 1 TABLET BY MOUTH EVERY DAY 10/31 completed Not Available Not Available Not Available doxycycli ne monohydra te 100 mg tablet TAKE 1 TABLET BY MOUTH TWICE A DAY FOR 7 DAYS 12/05 completed complete d Not Available Not Available Not Available ofloxacin 0.3 % ear drops PLACE 5 DROPS INTO RIGHT EAR TWICE A DAY FOR 7 DAYS 03/30 completed Not Available Not Available Not Available buspirone 10 mg tablet TAKE 1 TABLET TWO TIMES A DAY BY ORAL ROUTE NEEDED 03/30 completed Not Available Not Available Not Available ibuprofen 600 mg tablet TAKE 1 TABLET (600 MG TOTAL) BY MOUTH 4 (FOUR) TIMES A DAY NEEDED FOR PAIN WITH FOOD 10/31 completed not taking Not Available Not Available Not Available methylpre dnisolone 4 mg tablets in a dose pack TAKE 6 TABLETS ON DAY 1 DIRECTED ON PACKAGE AND DECREASE BY 1 TAB EACH DAY FOR A TOTAL OF 6 DAYS 02/06 completed Not Available Not Available Not Available albuterol sulfate HFA 90 mcg/actua tion aerosol inhaler INHALE 2 PUFFS 3 TIMES A DAY active Not Available Not Available No t Available losartan 50 mg-hydroc hlorothia zide 12.5 mg tablet TAKE 1 TABLET BY MOUTH EVERY DAY 12/05 completed Not Available Not Available Not Available amoxicill in 875 mg-potass ium clavulana te 125 mg tablet 1 TAB EVERY 12 HOURS WITH FOOD, RECOMMEN D TAKING PROBIOTI C OR EATING ACTIVA YOGURT WHILE ON THIS MED 03/30 completed Not Available Not Available Not Available Blood Glucose Test strips check bs daily 2022 active Not Available Not Available Not Avai lable rosuvasta tin 10 mg tablet TAKE 1 TABLET BY MOUTH EVERY DAY active Not Available Not Available No t Available losartan 100 mg-hydroc hlorothia zide 12.5 mg tablet TAKE 1 TABLET BY MOUTH EVERY DAY active Not Available Not Available No t Available Ozempic 0.25 mg or 0.5 mg (2 mg/1.5 mL) subcutane ous pen injector Inject 0.25 mg every week by subcutan eous route. 2022 active Not Available Not Available Not Avai lable Ozempic 0.25 mg or 0.5 mg (2 mg/3 mL) subcutane ous pen injector INJECT 0.25 MG SUBCUTAN EOUSLY EVERY WEEK 07/14 completed not using Not Available Not Available Not Available Vitals Date Recorded Body height Provider Name an d Address Organization Details Last Updated DateTime 06/13/2022 172.72 cm Dia Low [place] [facility] 06/13/19 11:13:39 Date Recorded Body mass index (BMI) Body weight Provider Name and Address Organization Details Last Updated DateTime 06/13/2022 43.3 kg/m2 081657.47 g Dia Low [place] [facility] 06/13/2022 11:18:20 Date Recorded Heart rate Provider Name an d Address Organization Details Last Updated DateTime 06/13/2022 95 /min Dia Low [place] [facility] 06/13/19 11:18:32 Date Recorded Respiratory rate Provider Name a nd Address Organization Details Last Updated DateTime 06/13/2022 14 /min Dia Low [place] [facility] 06/13/19 23 11:18:35 Date Recorded Body temperature Provider Name a nd Address Organization Details Last Updated DateTime 06/13/2022 97.3 [degF] Dia Low [place] [facility] 023 11:18:39 Date Recorded Oxygen saturation Oxygen saturation in Arterial blood by Pulse oximetry Provider Name and Address Organization Details Last Updated DateTime 06/13/2022 99 % 99 % Dia Low [place] [facility] 06/13/2022 11:18:43 Date Recorded Body height Provider Name an d Address Organization Details Last Updated DateTime 10/18/2022 172.72 cm Lead Alexander [facility] 10/18/2022 10:45:33 Date Recorded Body mass index (BMI) Body weight Provider Name and Address Organization Details Last Updated DateTime 10/18/2022 44.1 kg/m2 583096.79 g Leda Alexander [facility] 10:45:39 Date Recorded Heart rate Provider Name an d Address Organization Details Last Updated DateTime 10/18/2022 102 /min Leda Alexander [facility] 10/18/2022 10:45:47 Date Recorded Respiratory rate Provider Name a nd Address Organization Details Last Updated DateTime 10/18/2022 16 /min Leda Alexander [facility] 10/18/2022 10:45:48 Date Recorded Body temperature Provider Name a nd Address Organization Details Last Updated DateTime 10/18/2022 97.7 [degF] Leda Alexander [facility] 10/18/2022 10:45:53 Date Recorded Oxygen saturation Oxygen saturation in Arterial blood by Pulse oximetry Provider Name and Address Organization Details Last Updated DateTime 10/18/2022 97 % 97 % Leda Alexander [facility] 10/18 10:45:56 Date Recorded Body height Provider Name an d Address Organization Details Last Updated DateTime 12/03/2022 172.72 cm Dia Low [place] [facility] 12/04/19 09:01:47 Date Recorded Body mass index (BMI) Body weight Provider Name and Address Organization Details Last Updated DateTime 12/03/2022 44.3 kg/m2 290681.74 g Dia Low [place] [facility] 12/03/2022 09:04:17 Date Recorded Heart rate Provider Name an d Address Organization Details Last Updated DateTime 12/03/2022 105 /min EILEEN Enrique SIGamaliel 12/04/19 23 09:04:20 Date Recorded Respiratory rate Provider Name a nd Address Organization Details Last Updated DateTime 12/03/2022 16 /min EILEEN Enrique SIGamaliel 12/04/19 23 09:04:23 Date Recorded Body temperature Provider Name a nd Address Organization Details Last Updated DateTime 12/03/2022 97.2 [degF] EILEEN Enrique SIGamaliel 023 09:04:27 Date Recorded Oxygen saturation Oxygen saturation in Arterial blood by Pulse oximetry Provider Name and Address Organization Details Last Updated DateTime 12/03/2022 96 % 96 % EILEEN Enrique SIGamaliel 12/03/2022 09:04:32 Date Recorded Body height Provider Name an d Address Organization Details Last Updated DateTime 07/14/2023 172.72 cm EILEEN Enrique SIGamaliel 07/14/19 24 10:04:14 Date Recorded Body mass index (BMI) Body weight Provider Name and Address Organization Details Last Updated DateTime 07/14/2023 41.5 kg/m2 171203.64 g EILEEN Enrique SIGamaliel 07/14/2023 10:09:23 Date Recorded Heart rate Provider Name an d Address Organization Details Last Updated DateTime 07/14/2023 90 /min EILEEN Enrique SIGamaliel 07/14/19 24 10:09:45 Date Recorded Respiratory rate Provider Name a nd Address Organization Details Last Updated DateTime 07/14/2023 14 /min EILEEN Enrique SIGamaliel 07/14/19 24 10:09:50 Date Recorded Body temperature Provider Name a nd Address Organization Details Last Updated DateTime 07/14/2023 97.8 [degF] EILEEN Enrique [facility] 024 10:09:55 Date Recorded Oxygen saturation Oxygen saturation in Arterial blood by Pulse oximetry Provider Name and Address Organization Details Last Updated DateTime 07/14/2023 96 % 96 % EILEEN Enrique [facility] 07/14/2023 10:10:02 Date Recorded Body height Provider Name an d Address Organization Details Last Updated DateTime 03/30/2024 172.72 cm Dia Low [place] [facility] 03/30/20 11:00:48 Date Recorded Body mass index (BMI) Body weight Provider Name and Address Organization Details Last Updated DateTime 03/30/2024 36.2 kg/m2 189338.98 g Dia Low [place] [facility] 03/30/2024 11:03:57 Date Recorded Heart rate Provider Name an d Address Organization Details Last Updated DateTime 03/30/2024 83 /min Dia Low [place] [facility] 03/30/20 11:04:05 Date Recorded Respiratory rate Provider Name a nd Address Organization Details Last Updated DateTime 03/30/2024 14 /min Dia Low [place] [facility] 03/30/20 11:04:07 Date Recorded Body temperature Provider Name a nd Address Organization Details Last Updated DateTime 03/30/2024 97.3 [degF] Dia Low [place] [facility] 024 11:04:10 Date Recorded Oxygen saturation Oxygen saturation in Arterial blood by Pulse oximetry Provider Name and Address Organization Details Last Updated DateTime 03/30/2024 97 % 97 % Dia Low [place] [facility] 03/30/2024 11:04:31 Date Recorded Systolic blood pressure Diastolic blood pressure Provider Name and Address Organization Details Last Updated DateTime 06/13/2022 118 mm[Hg] 88 mm[Hg] Dia Low [place] [facility] 06/13/2022 11:18:28 Date Recorded Systolic blood pressure Diastolic blood pressure Provider Name and Address Organization Details Last Updated DateTime 10/18/2022 126 mm[Hg] 92 mm[Hg] Leda Grewalte [facility] 10/07 10:47:12 Date Recorded Systolic blood pressure Diastolic blood pressure Provider Name and Address Organization Details Last Updated DateTime 12/03/2022 138 mm[Hg] 88 mm[Hg] Dia Low [place] [facility] 12/03/2022 09:04:50 Date Recorded Systolic blood pressure Diastolic blood pressure Provider Name and Address Organization Details Last Updated DateTime 07/14/2023 137 mm[Hg] 85 mm[Hg] Dia Low [place] [facility] 07/14/2023 10:09:31 Date Recorded Systolic blood pressure Diastolic blood pressure Provider Name and Address Organization Details Last Updated DateTime 03/30/2024 121 mm[Hg] 77 mm[Hg] Dia Low MA [facility] 03/30/2024 11:04:40 Social History Question Answer Notes LastModified by Organizat ion Details LastModified Time Tobacco Smoking Status Former Smoker quit 03/2022 Dia Low [place] null, [place] - [facility] 06/13/2022 11:15:39 What Is Your Level Of Alcohol Consumption? Moderate Information not available 10/31/2021 Are You Blind Or Do You Have Difficulty Seeing? No Information not available 10/31/2021 What Is Your Level Of Caffeine Consumption? Occasional Information not available 07/14/2023 In The 14 Days Before Symptom Onset, Have You Had Close Contact With A Laboratory-confi rmed COVID-19 While That Case Was Ill? No Information not available 10/31/2021 In The 14 Days Before Symptom Onset, Have You Had Close Contact With A Person Who Is Under Investigation For COVID-19 While That Person Was Ill? No Information not available 10/31/2021 Have You Been To An Area Known To Be High Risk For COVID-19? No Information not available 10/31/2021 Are You Currently Employed? 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 REGULAR Information not available 10/31/2021 Do You Or Have You Ever Used E-cigarettes Or Vape? Never Used Electronic Cigarettes Information not available 06/13/2022 What Is The Highest Grade Or Level Of School You Have Completed Or The Highest Degree You Have Received? [id number] [employer] Information not available 10/31/2021 What Is Your Occupation? [employer] Information not available 03/30/2024 Are There Any Guns Present In Your Home? Yes Information not available 10/31/2021 What Was The Date Of Your Most Recent Tobacco Screening? 03/30/2024 Information not available 03/30/2024 What Is Your Relationship Status? Information not available 10/31/2021 Do You Use Your Seat Belt Or Car Seat Routinely? Yes Information not available 10/31/2021 Do You Have Smoke And Carbon Monoxide Detectors In Your Home? Yes Information not available 10/31/2021 At What Age Did You Start Smoking Tobacco? 17 Information not available 10/31/2021 Do You Or Have You Ever Used Smokeless Tobacco? Currently Chews Tobacco 1 Can Every 2 Days Information not available 06/13/2022 How Much Tobacco Do You Smoke? 1 PPD 1 - 1 1/2 Packs Daily Information not available 10/31/2021 Do You Feel Stressed (tense, Restless, Nervous, Or Anxious, Or Unable To Sleep At Night)? [id number] Information not available 06/13/2022 Do You Use Any Illicit Or Recreational Drugs? No Information not available 10/31/2021 Do You Use Sunscreen Routinely? No Information not available 10/31/2021 Has Tobacco Cessation Counseling Been Provided? Yes Information not available 12/05/2021 On What Date Was Tobacco Cessation Counseling Provided? 03/30/2024 Information not available 03/30/2024 Do You Or Have You Ever Used Any Other Forms Of Tobacco Or Nicotine? Yes Information not available 06/13/2022 Sex: Male Functional Status Question Answer Note LastModified by Organization D etails LastModified Time Are you able to care for yourself? Yes Information not available 10/31/2021 What is your exercise level? None active Information not available 03/30/2024 Mental Status None recorded. Family History Relationship Description Onset Age of this Age Resolved Age Notes LastModified by Organization Details LastModified Time Father Heart disease runs on dad's side Not available 10/31/2021 10:14:17 Mother Diabetes mellitus Runs on mother 's side Not available 10/31/2021 10:14:33 Medical History Condition Response Coronary Artery Disease N Other N High Blood Pressure Y Atrial Fibrillation N Kidney or Bladder Problems N Thyroid Problems N GI Problems N Depression N COPD N Blood Clots N Skin Problems N Anemia N Heart Attack ([place]) N Anxiety Disorder Y Diabetes N Muscle, Joint, or Bone Problems N Seizures/Epilepsy N Acid Reflux (GERD) Y Cancer N Stroke N Asthma Y Allergies Y High Cholesterol N Hepatitis N Liver Disease N Headaches N Heart Failure N Osteoporosis N Past Encounters Encounter ID Performer Location Encounter Start Date Encounter Closed Date Diagnosis/Indication Diagnosis SNOMED-CT Code Diagnosis ICD10 Code Diagnosis Note [id number] MD Castro Page (Adult Med) [address] [place], [place] [address] 10/31/2021 10:02:42 11/01/2021 15:59:16 Essential hypertension 22637607 I10 pt is off metoprolol for 4-5 months per pt- pt to start losartan hctD/c metoprolol for now Obesity 515570396 E66.9 - pt declined sleep study at this time Smoker 50522511 F17.200 Anxiety 72150261 F41.9 of mild severity -pt was on escitalopr am in the past and he did not like it per pt- pt to try buspar bid prn Stasis dermatitis 672112 05 I87.2 -loose wt /compressi on stocking [id number] MD Castro Page (Adult Med) [address] [place] [address] 12/05/2021 09:47:37 12/06/2021 08:10:30 Essential hypertension 64113564 I10 pt is off metoprolol for 4-5 months per pt- pt to increase losartan hct 100/12.5D/ c metoprolol for now Anxiety 99672764 F41.9 of mild severity -pt was on escitalopr am in the past and he did not like it per pt- pt to try 2 tab of buspar bid prn Hyperlipidemia 01548135 E78.5 -discussed benefits and risks of statinpt wants to try LSM first -will recheck in 6 month Liver func tion tests outside reference range 152822058 R94.5 possibly due to fatty liver Obesity 416355510 E66.9 - pt declined sleep study at this time [id number] MD Castro Page (Adult Med) [address] [facility] [address] 01/30/2022 11:22:41 01/31/2022 08:07:40 Acute bronchitis 87786534 J20.9 -keep good hydration/ go to ER if problem worsen- work note Smoker 00882939 F17.950 [id number] [facility] [address] [facility] [address] 02/06/2022 09:48:18 02/06/2022 14:45:58 Essential hypertension 30354184 I10 pt is off metoprolol for 4-5 months per pt- pt to continue losartan hct 100/12.5D/ c metoprolol for now Anxiety 39514292 F41.9 of mild severity -pt was on escitalopr am in the past and he did not like it per pt- pt is on buspar bid prn Hyperlipidemia 59037070 E78.5 -discussed benefits and risks of statinpt wants to try LSM first -will recheck in 6 month Obesity 897960719 E66.9 - pt declined sleep study at this time [id number] [facility] [address] [place] [address] 06/13/2022 10:54:18 06/18/2022 09:54:18 Essential hypertension 37375288 I10 pt is off metoprolol - pt to continue losartan hct 100/12.5D/ vika metoprolol for now Anxiety 57992194 F41.9 of mild severity -pt was on escitalopr am in the past and he did not like it per pt- pt is on buspar bid prn Hyperlipidemia 65002664 E78.5 -discussed benefits and risks of statinpt wants to try LSM first Obesity 702001563 E66.9 - pt declined sleep study at this time [id number] [facility] [address] [facility] [address] 10/18/2022 10:41:09 2022 10:33:09 Essential hypertension 43540006 I10 pt is off metoprolol - pt to continue losartan hct 100/12.5D/ vika metoprolol for now Obesity 852476887 E66.9 - pt declined sleep study at this time Liver func tion tests outside reference range 374444129 R94.5 possibly due to fatty liver /metabolic syndrome Hyperlipidemia 76529655 E78.5 -discussed benefits and risks of statinpt wants to try LSM first Anxiety 35203787 F41.9 of mild severity -pt was on escitalopr am in the past and he did not like it per pt- pt is on buspar bid prn Metabolic syndrome X 237 339631 E88.81 healthy diet and exercise discussed with pt [id number] MD Herlinda Pagehalto (Adult Med) [address] [place] [address] 12/03/2022 08:58:38 12/05/2022 11:01:19 Type 2 diabetes mellitus 89566987 E11.9 -new onset -pt declined to see dieticianp t is willing to start metformin and glp1 if his insurance covers Hyperlipidemia 79070294 E78.5 -discussed benefits and risks of statin- pt is willing to start statinpt to continue LSM Obesity 067170537 E66.9 - pt declined sleep study at this time [id number] [facility] [address] [place] [address] 07/14/2023 09:48:21 07/18/2023 14:44:21 Essential hypertension 71392030 I10 pt is off metoprolol - pt to continue losartan hct 100/12.5D/ vika metoprolol for now Type 2 kenisha betes mellitus 71370932 E11.9 -new onset -pt declined to see dieticianp t is on metforminp t stopped taking glp1/ozemp ic-pt to see eye doctor Hyperlipidemia 68036268 E78.5 -discussed benefits and risks of statin- pt is on statinpt to continue LSM Obesity 595408117 E66.9 - pt declined sleep study at this time Anxiety 55262577 F41.9 of mild severity -pt was on escitalopr am in the past and he did not like it per pt- pt is on buspar bid prn [id number] MD Herlinda Pagehalto (Adult Med) [address] [place] [address] 03/30/2024 10:44:00 04/02/2024 13:05:49 Type 2 diabetes mellitus 88330825 E11.9 -new onset -pt declined to see dieticianp t is on metforminp t stopped taking glp1/ozemp ic-pt to see eye doctor Hyperlipidemia 66733754 E78.5 -discussed benefits and risks of statin- pt is on statinpt to continue LSM Essential hypertension 04634378 I10 pt is off metoprolol - pt to continue losartan hct 100/12.5D/ vika metoprolol for now Intentiona l weight loss 982978242 R63.8 with diet and exercise Dysfunctio n of eustachian tube 30495746 H69.93 -steam inhalation /otc antihistam inept has afrin nasal spray Health Concerns Section Related Observation LastModified by Organization Detai ls LastModified Time None Recorded Concern Status LastModified by Organization Details LastModified Time None Recorded Advance Directives Directive None Recorded Payers Encounter Date Sequence Insurance Name Policy Number Policy Maciel Covered Member ID Maciel Member ID Guarantor Name 06/13/2022 2 *SELF PAY* Do uglas A Asuncion 06/13/2022 1 [place] [id number] Carlitos Garcia Asuncion [id number] 1 Mark A Asuncion 10/18/2022 2 *SELF PAY* Do uglas A Asuncion 10/18/2022 1 [place] [id number] Carlitos Garcia Asuncion [id number] 1 Mark A Asuncion 12/03/2022 2 *SELF PAY* Do uglas A Asuncion 12/03/2022 1 [place] [id number] Carlitos Garcia Asuncion [id number] 1 Mark A Asuncion 07/14/2023 1 [place]) [id number] Carlitos Jose Asuncion [id number] 1 Mark A Asuncion 07/14/2023 1 [facility] [id number] Asuncion Roland [id number] Mark Roland 03/30/2024 2 *SELF PAY* Do uglas A Asuncion 03/30/2024 1 [facility] [id number] Asuncion Roland [id number] Mark Roland Notes Date Note Type Note Provider Name and Address Organization Details Recorded Time 3 text/html Anxiety/DepressionReported bypatient.Quality:symptoms improved Severity:denies suicidal ideations Duration:frequent; symptoms lasting over 2 weeks Context:no major life stressors; 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 Symptoms:denies homicidal ideations;anxiety(stable);s leep disturbances(pt snores -declined sleep study)HyperlipidemiaReporte d bypatient.Type of hyperlipidemia:hypercholest erolemia Duration:chronic Control:not at goal Compliance:compliant with diet;does not exercise Risk Factors:positive family history of premature arteriosclerotic cardiovascular disease;hypertension;smokin g;obesityHypertension F/UReported bypatient.Associated Symptoms:no dizziness; no chest pain; no shortness of breath; no palpitations; no edema Lifestyle:regular exercise; limiting/avoiding salt Medications:taking medications as directed; no side effects from medication Rupert Villatoro MD Attn: [facility],[address] [place] [phone], [facility] 06/14/2022 14:29:54 3 text/html Anxiety/DepressionReported bypatient.Quality:symptoms improved Severity:denies suicidal ideations Duration:frequent; symptoms lasting over 2 weeks Context:no major life stressors; 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 Symptoms:denies homicidal ideations;anxiety(stable);s leep disturbances(pt snores -declined sleep study)HyperlipidemiaReporte d bypatient.Type of hyperlipidemia:hypercholest erolemia Duration:chronic Control:not at goal Compliance:compliant with diet;does not exercise Risk Factors:positive family history of premature arteriosclerotic cardiovascular disease;hypertension;smokin g;obesityHypertension F/UReported bypatient.Associated Symptoms:no dizziness; no chest pain; no shortness of breath; no palpitations; no edema Lifestyle:regular exercise; limiting/avoiding salt Medications:taking medications as directed; no side effects from medication Rupert Villatoro MD Attn: [facility],[address] [place] [address], [phone], [facility] 10/18/2022 15:55:17 3 text/html HyperlipidemiaReported bypatient.Type of hyperlipidemia:hypercholest erolemia Duration:chronic Control:not at goal Compliance:compliant with diet;does not exercise Complications:no coronary artery disease Risk Factors:positive family history of premature arteriosclerotic cardiovascular disease;diabetes;hypertensi on;smoking;obesity labs discussed with pt -pt has f/h of DM , discussed about diabetic diet Rupert Villatoro MD Attn: [facility],[address] [place] [address], [phone], [facility] 12/03/2022 10:31:35 4 text/html Anxiety/DepressionReported bypatient.Quality:symptoms improved Severity:denies suicidal ideations Duration:frequent; symptoms lasting over 2 weeks Context:no major life stressors; 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 Symptoms:denies homicidal ideations;anxiety(stable);s leep disturbances(pt snores -declined sleep study)Diabetes F/UReported bypatient.Labs:last A1C result: 7.0 Context:normal range of home blood sugars (in the low 100s); checking feet regularly; no side effects from medications;missing doses of medication Associated Symptoms:no numbness of feet;weight loss ( lbs)HyperlipidemiaReported bypatient.Type of hyperlipidemia:hypercholest erolemia Duration:chronic Compliance:compliant with diet;does not exercise Complications:no coronary artery disease Risk Factors:positive family history of premature arteriosclerotic cardiovascular disease;diabetes;hypertensi on;smoking;obesityHypertens ion F/UReported bypatient.Associated Symptoms:no dizziness; no chest pain; no shortness of breath; no palpitations; no edema Lifestyle:regular exercise; limiting/avoiding salt Medications:taking medications as directed; no side effects from medication missed f/u Rupert Villatoro MD Attn: [facility],[address] [place], [phone], [facility] 07/14/2023 10:33:30 4 text/html Diabetes F/UReported bypatient.Labs:last A1C result: 7.0 Context:normal range of home blood sugars (in the low 100s); checking feet regularly; no side effects from medications;missing doses of medication Associated Symptoms:no numbness of feet;weight loss ( lbs)(intentional)EaracheRep orted bypatient.Location:[facility](R/ear) Quality:tension (popping sound) Severity:intermittent Duration:intermittent Context:no sick contacts Modifying Factors:does not hurt to lie on, or pull on ear Associated Symptoms:no discharge from the ears;nose/sinus problems(sinus drainage and sorethroat)HyperlipidemiaRe ported bypatient.Type of hyperlipidemia:hypercholest erolemia Duration:chronic Compliance:compliant with diet;noncompliant;does not exercise Complications:no coronary artery disease Risk Factors:positive family history of premature arteriosclerotic cardiovascular disease;diabetes;hypertensi on;smoking;obesityHypertens ion F/UReported bypatient.Associated Symptoms:no dizziness; no chest pain; no shortness of breath; no palpitations; no edema Lifestyle:regular exercise; limiting/avoiding salt Medications:no side effects from medication;not taking medications as directed missed f/u/ stopped taking med - pt is following diet and exercise /loosing wtpt has been monitoring his blood sugar and bp which were normal at home per pt Rupert Villatoro MD Attn: Accounting,[address] [place], [address], [place] [facility] 03/30/2024 12:30:17
== END 2024-07-07 11:43 | disposition home or self-care (01) ==
PROVIDERS: Emergency Provider Registered Nurse; PCP Internal Medicine
DX: H10.32 Unspecified acute conjunctivitis, left eye (principal); F17.210 Nicotine dependence, cigarettes, uncomplicated; J45.909 Unspecified asthma, uncomplicated
CPT/HCPCS: 99213; G0463